=== PATIENT | female | born 1985 | race Caucasian/White ===

== ENCOUNTER 2016-04-24 11:10 | Emergency (ER) | payer MEDICAID ==
[~2016-04-24] VITALS: Ht 149.9 cm; Wt 52.2 kg
[~2016-04-24 11:10] MED LIST: ADVIL200 MG PO; AEROCHAMBER1 DEV IH; ALBUTEROL-200 PUFFS/ IH; ANTIBIOTIC OR; AZITHROMYCIN250 M1 PO; BACTRIM DS 8001 TA1 PO; BACTRIM DS 8001 TAB PO; DILAUDID4 MG FT; ELIMITE 5%60 GM/TUB1 TP; FERROUS SULFAT325 M2 PO; FLEXERIL10 MG PO; FLEXERIL5 MG PO; IBUPROFEN 600M600 MG PO; KEFLEX 500MG.500 MG PO; MEDROL 4MG. DOSE4 MG PO; MOTRIN400 MG PO; NOMEDS; PHENERGAN 25MG.25 M1 PO; PREDNISONE 20MG20 MG PO; PREDNISONE50 MG PO; PRENATAL1 TA1 PO; PROVENTIL0.09 MG/AC IH; SEPTRA DS 800 M1 TAB PO; ZITHROMAX 250M250 MG PO; ZITHROMAX Z-PA250 M1 PO
[2016-04-24 11:37] LABS: HEMOGLOBIN 13.5 g/dL (12.2-16.2); LYMPH # 1.7 K/mm3 (0.7-4.5)
[2016-04-24 11:59] LABS: BUN 5 mg/dL (7-18)
[2016-04-24 12:04] LABS: GFR (ESTIMATED) 100 ML/MIN (59-)
--- NOTE | 2016-04-24 13:30 | Emergency Room Report ---
History of Present Illness Time Seen by [id number] Presenting Problem in Triage Pt arrived:Walked Presenting Problem:C/O LEFT SIDED CHEST PAIN THAT STARTED LAST NIGHT. REPORTS SOA WITH IT. PT STATES IT HURTS TO MOVE. 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 N Clinical Suspician of Infection? N Mental Status: 1 - Regular (Normal Baseline) Sepsis Risk:Low Sepsis Risk Have you (or family members/close friends) recently traveled outside the [place]? N If Yes, where/when: Have you had exposure to infectious disease within the past month? N TB? Other? Specify: Source patient, RN notes reviewed, family, old records Exam Limitations no limitations Comment progressive sob and cough over the last few days w/o rash or hemoptysis Cardiac Chest Pain Chest pain indicative of cardiac No Timing/Duration this evening Severity moderate ALLERGIES Coded Allergies: Penicillins (11/18/15) codeine (11/18/15) Home Medications Active Scripts Albuterol (Albuterol-Hfa Inhaler) 1 PUFF IH QIDP PRN dyspnea #1 INH Ref 6 Prov: 11/18/15 History Medical History General CAD? No Angina: No [place]: No Hypertension? No Hyperlipidemia? No CHF? No DVT? No PE? No COPD? No Asthma? Yes Anemia? No GERD? No Gastric ulcers? No GI Bleed? No Hernia? No Thyroid Problems? No Hypothyroidism? No CVA? No Seizures? No Diabetes? No Renal Insuffiency? No End Stage Renal Disease? No UTI? No Stones? No BPH? No GB Disease: No Nephritic Syndrome? No Asplenia? No Hepatitis? No Sickle Cell Disease? No Arthritis? No Migraines? No Cataracts? No Glaucoma? No MRSA? No HIV? No TB? No Anxiety? No Depression? No Cancer? No More? 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 Respiratory see HPI, cough, denies shortness of breath, wheezing Cardiovascular denies chest pain, denies palpitations, denies syncope Gastrointestinal denies abdominal pain, denies diarrhea, denies vomiting Genitourinary denies: dysuria, frequency, hesitancy, hematuria. Musculoskeletal denies back pain, denies joint pain, denies joint swelling, denies neck pain Skin denies rash Psychiatric/Neurological denies headache, denies seizure Physical Exam Vital Signs Vital Signs Date Time Temp Pulse Resp B/P Pulse O2 O2 Flow FiO2 Ox Delivery Rate 04/24 1455 98.1 58 20 128/63 98 04/24 1341 20 04/24 1323 98.4 86 20 130/75 96 04/24 1229 98.1 86 20 125/68 98 04/24 1111 98.1 92 16 150/84 100 - WBC >12,000 or <4,000 or 10% bands? 2 or more SIRS Criteria Met? B/P:128/63 MAP:106 Creatinine >2.0? UA output<0.5ml/kg/hr for 2 hrs? Platelet count >100,000? Lactate >2.0mmol/1? INR >1.2 or PTT > than 60 sec? Evidence of Organ Dysfunction? Provider documented clinical suspician of infection? N Sepsis Criteria Count: 1 Sepsis Risk: Low Sepsis Risk General Appearance no apparent distress Eye Exam - bilateral eye PERRL, bilateral eye EOMI Ear, Nose, Throat normal ENT inspection Neck supple Respiratory Status No: respiratory distress. Lung Sounds bilateral: rhonchi, wheezing. 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 No Results/Orders Laboratory Tests 04/24/16 1345: Influenza Type A Ag NOT DETECTED, Influenza Type B Ag NOT DETECTED 04/24/16 1127: Lactic Acid 0.9 04/24/16 1127: Sodium 136, Potassium 3.6, Chloride 101, Carbon Dioxide 26, BUN 5 L, Creatinine 0.7, Estimated Creat Clear 99, Estimated GFR (MDRD) 100, Glucose 96, Calcium 9.0 , Total Bilirubin 0.4, AST 10 L, ALT 18, Alkaline Phosphatase 107, Creatine Kinase 115, CK-MB (CK-2) Rel Index 0.5, CK and CKMB Interp 0.6, Troponin I < 0.02, Total Protein 7.9, Albumin 3.6, Globulin 4.3 H, Albumin/Globulin Ratio 0.8 L, WBC 11.2 H, RBC 4.82, Hgb 13.5, Hct 41.2, MCV 85.5, RDW 15.0, Plt Count 218, MPV 5.7 L, Gran % 78.5, Gran # 8.8 H, Lymphocytes % 15.0, Monocytes % 5.8 , Eosinophils % 0.5, Basophils % 0.2, Lymphocytes # 1.7, Monocytes # 0.6, Eosinophils # 0.1, Basophils # 0.0, PUBS MCHC 32.8, MCH 28.1 Current Medication Orders Sig/Maxime Start time Last Medication Dose Route Stop Time Status Admin Ceftriaxone Sodium 1 GM ONCE ONE 04/24 1345 DCr 04/24 Sodium Chloride 50 ML IV 04/24 1414 1343 Ceftriaxone Sodium 0 .STK-MED ONE 04/24 1334 DCr IV Sodium Chloride 1,000 ML .STK-MED ONE 04/24 1334 DC IV Ceftriaxone Sodium 0 .STK-MED ONE 04/24 1333 DCr .ROUTE Sodium Chloride 50 ML .STK-MED ONE 04/24 1333 DC IV Ketorolac 0 .STK-MED ONE 04/24 1332 DC Tromethamine .ROUTE Ketorolac 30 MG ONCE ONE 04/24 1330 DC 04/24 Tromethamine IV 04/24 1331 1341 Methylprednisolone 125 MG ONCE ONE 04/24 1330 DC 04/24 Sodium Succinate IV 04/24 1331 1341 Sodium Chloride 1,000 ML .Q1H1M 04/24 1330 DC 04/24 IV 04/24 1430 1343 Sodium Chloride 10 ML PRN PRN 04/24 1330 AC IV 04/25 1330 Aspirin 324 MG ONCE ONE 04/24 1130 DC 04/24 PO 04/24 1131 1123 Sodium Chloride 10 ML PRN PRN 04/24 1130 AC IV 04/25 1117 Aspirin 0 .STK-MED ONE 04/24 1120 DC .ROUTE Orders Procedure Date/time Status INFLUENZA A&B ANTIGENS 04/24 1322 Complete ELECTROCARDIOGRAM REQUEST 04/24 1118 Active IV SALINE LOCK 04/24 1118 Active CULTURE, BLOOD 04/24 1118 Active LACTIC ACID 04/24 1118 Complete CBC WITH AUTO DIFF 04/24 1118 Complete CARDIAC ENZYMES 04/24 1118 Complete CHEM 12 PROFILE 04/24 1118 Complete 12 LEAD EKG-ERIKA (INITIAL) 04/24 UNK Active 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 ST/Twave chgs XRAY/CT/US XRAY/CT/US XRAY chest XR interpretation by reviewed by me Xray Results abnormal (cap) Departure Departure Time of Disposition 1517 Disposition DC Home or Self Care(routine) Clinical Impression Primary Impression: CAP (community acquired pneumonia) Condition STABLE Referrals Arpit Dias MD (PCP/Family) Patient Instructions DI for Pleurisy Additional Instructions use meds and stop tob and see pcp for follow up next week Discharge Counseling Counseled pt/family regarding diagnosis, test results, medications/RX, follow up needs, tobacco counseling,> 3min Prescriptions Current Visit Scripts BENZONATATE (Benzonatate) 100 MG PO TID #15 CAP Prednisone (Prednisone 20MG) 20 MG PO BID #10 TAB Azithromycin (Zithromycin (Z-CARI) 250MG Tab) 250 MG PO DAILY #6 TAB TAKE TWO (2) TABLETS ON DAY 1, THEN ONE (1) TABLET DAY #2 THRU #5 ED Critical Care Critical Care No at 1521
--- NOTE | 2016-04-24 14:26 | RADIOLOGY REPORT PS360 ---
CHEST(2 VIEWS-NOT PORTABLE) COMPARISON: PA and lateral chest 11/18/2015 HISTORY: Shortness of breath, chest pain TECHNIQUE: PA and lateral chest FINDINGS: There is ill-defined opacity with faint air bronchograms partially silhouetting the left heart border consistent with a pneumonic infiltrate in the lingula. The left upper lung field and right lung field are clear. Cardiac size is normal and the vascularity is normal. There may be some minimal post inflammatory scarring or atelectasis at the right base. There is no pleural fluid. IMPRESSION: Lingular pneumonia and suggest follow-up films to assess clearing following treatment
[2016-04-24] MEDS ORDERED: PREDNISONE 20MG20 MG PO (15:20)
[2016-04-24] MEDS ORDERED: ZITHROMAX Z PA250 MG PO (15:20)
[2016-04-24] MEDS ORDERED: TESSALON PERLE100 MG PO (15:20)
[2016-04-24 15:31] VITALS: BP 122/64
== END 2016-04-24 15:31 | disposition home or self-care (01) ==
LOC: ER 11:10
PROVIDERS: Emergency Medicine
DX: J18.9 Pneumonia, unspecified organism (principal); Z72.0 Tobacco use

== ENCOUNTER 2016-09-29 00:31 | Emergency (ER) | payer MEDICAID ==
[~2016-09-29] VITALS: Ht 149.9 cm; Wt 49.9 kg
[~2016-09-29 00:31] MED LIST changes: +BROMFED DM COU118 ML PO; +FLONASE 50 MCG16 GM; +PROVENTIL0.09 MG/A1 IH; +TESSALON PERLE100 MG PO; +ZITHROMAX Z PA250 MG PO
--- NOTE | 2016-09-29 01:07 | Emergency Room Report ---
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 N Clinical Suspician of Infection? N Mental Status: 1 - Regular (Normal Baseline) Sepsis Risk:Possible Sepsis Risk Have you (or family members/close friends) recently traveled outside the [place]? N If Yes, where/when: Have you had exposure to infectious disease within the past month? TB? Other? Specify: Source patient, RN notes reviewed, police, old records Exam Limitations no limitations Comment wf brought to ed for medical clearance - she hasonly c/o of ear pain after sticking cerumen spoon too far in but no fever or bleeding Cardiac Chest Pain Chest pain indicative of cardiac No Timing/Duration this evening Severity moderate ALLERGIES Coded Allergies: Penicillins (11/18/15) codeine (11/18/15) Home Medications Active Scripts Azithromycin (Zithromycin (Z-LOC) 250MG Tab) 250 MG PO DAILY #6 TAB Prov: 07/15/16 D-METHORPHAN HB/P-EPD HCL/BPM (Bromfed Dm Cough Syrup) 10 ML PO Q4HP PRN cough #120 SYR Prov: 07/15/16 Fluticasone Propionate (Flonase 50 Mcg Nasal [place]) 2 SPRAY NA DAILY #1 BOT Prov: 07/15/16 Methylprednisolone (Medrol Dose Loc) 4 MG PO UD #1 LOC Prov: 07/15/16 ALBUTEROL (Proventil Hfa Inhaler) 1-2 PUFF IH Q4-6H PRN #1 CAN Prov: 07/15/16 History Medical History General CAD? No Angina: No [place]: No Hypertension? No Hyperlipidemia? No CHF? No DVT? No PE? No COPD? No Asthma? Yes Anemia? No GERD? No Gastric ulcers? No GI Bleed? No Hernia? No Thyroid Problems? No Hypothyroidism? No CVA? No Seizures? No Diabetes? No Renal Insuffiency? No End Stage Renal Disease? No UTI? No Stones? No BPH? No GB Disease: No Nephritic Syndrome? No Asplenia? No Hepatitis? No Sickle Cell Disease? No Arthritis? No Migraines? No Cataracts? No Glaucoma? No MRSA? No HIV? No TB? No Anxiety? No Depression? No Cancer? No More? 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 denies: ear discharge, epistaxis, throat pain. Respiratory denies cough, denies shortness of breath Cardiovascular denies syncope Gastrointestinal denies vomiting Genitourinary denies: frequency. Musculoskeletal denies joint swelling Skin denies rash Psychiatric/Neurological denies seizure Physical Exam Vital Signs Vital Signs Date Time Temp Pulse Resp B/P Pulse O2 O2 Flow FiO2 Ox Delivery Rate 09/29 0048 122 22 150/123 96 - WBC >12,000 or <4,000 or 10% bands? 2 or more SIRS Criteria Met? B/P:150/123 MAP:132 Creatinine >2.0? UA output<0.5ml/kg/hr for 2 hrs? Platelet count >100,000? Lactate >2.0mmol/1? INR >1.2 or PTT > than 60 sec? Evidence of Organ Dysfunction? Provider documented clinical suspician of infection? N Sepsis Criteria Count: 2 Sepsis Risk: Possible Sepsis Risk General Appearance no apparent distress Eye Exam - bilateral eye PERRL, bilateral eye EOMI Ear, Nose, Throat unable to see tm but no blood in canals Neck supple Respiratory Status No: respiratory distress. Lung Sounds bilateral: lungs clear. 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 No Departure Departure Time of Disposition 0101 Disposition DC Home or Self Care(routine) Clinical Impression Primary Impression: Medical clearance for incarceration Secondary Impressions: Ear pain Qualifiers: Laterality: bilateral Qualified Code: H92.03 - Otalgia, bilateral Condition STABLE Referrals Clarke CORDOVA,Lai Eckert Patient Instructions DI for Ear Pain-Adult Additional Instructions see pcp for follow up Discharge Counseling Counseled pt/family regarding diagnosis, test results, medications/RX, follow up needs ED Critical Care Critical Care No at 0107
--- NOTE | 2016-09-29 01:07 | Emergency Room Report ---
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 N Clinical Suspician of Infection? N Mental Status: 1 - Regular (Normal Baseline) Sepsis Risk:Possible Sepsis Risk Have you (or family members/close friends) recently traveled outside the [place]? N If Yes, where/when: Have you had exposure to infectious disease within the past month? TB? Other? Specify: Source patient, RN notes reviewed, police, old records Exam Limitations no limitations Comment wf brought to ed for medical clearance - she hasonly c/o of ear pain after sticking cerumen spoon too far in but no fever or bleeding Cardiac Chest Pain Chest pain indicative of cardiac No Timing/Duration this evening Severity moderate ALLERGIES Coded Allergies: Penicillins (11/18/15) codeine (11/18/15) Home Medications Active Scripts Azithromycin (Zithromycin (Z-LOC) 250MG Tab) 250 MG PO DAILY #6 TAB Prov: 07/15/16 D-METHORPHAN HB/P-EPD HCL/BPM (Bromfed Dm Cough Syrup) 10 ML PO Q4HP PRN cough #120 SYR Prov: 07/15/16 Fluticasone Propionate (Flonase 50 Mcg Nasal [place]) 2 SPRAY NA DAILY #1 BOT Prov: 07/15/16 Methylprednisolone (Medrol Dose Loc) 4 MG PO UD #1 LOC Prov: 07/15/16 ALBUTEROL (Proventil Hfa Inhaler) 1-2 PUFF IH Q4-6H PRN #1 CAN Prov: 07/15/16 History Medical History General CAD? No Angina: No [place]: No Hypertension? No Hyperlipidemia? No CHF? No DVT? No PE? No COPD? No Asthma? Yes Anemia? No GERD? No Gastric ulcers? No GI Bleed? No Hernia? No Thyroid Problems? No Hypothyroidism? No CVA? No Seizures? No Diabetes? No Renal Insuffiency? No End Stage Renal Disease? No UTI? No Stones? No BPH? No GB Disease: No Nephritic Syndrome? No Asplenia? No Hepatitis? No Sickle Cell Disease? No Arthritis? No Migraines? No Cataracts? No Glaucoma? No MRSA? No HIV? No TB? No Anxiety? No Depression? No Cancer? No More? 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 denies: ear discharge, epistaxis, throat pain. Respiratory denies cough, denies shortness of breath Cardiovascular denies syncope Gastrointestinal denies vomiting Genitourinary denies: frequency. Musculoskeletal denies joint swelling Skin denies rash Psychiatric/Neurological denies seizure Physical Exam Vital Signs Vital Signs Date Time Temp Pulse Resp B/P Pulse O2 O2 Flow FiO2 Ox Delivery Rate 09/29 0048 122 22 150/123 96 - WBC >12,000 or <4,000 or 10% bands? 2 or more SIRS Criteria Met? B/P:150/123 MAP:132 Creatinine >2.0? UA output<0.5ml/kg/hr for 2 hrs? Platelet count >100,000? Lactate >2.0mmol/1? INR >1.2 or PTT > than 60 sec? Evidence of Organ Dysfunction? Provider documented clinical suspician of infection? N Sepsis Criteria Count: 2 Sepsis Risk: Possible Sepsis Risk General Appearance no apparent distress Eye Exam - bilateral eye PERRL, bilateral eye EOMI Ear, Nose, Throat unable to see tm but no blood in canals Neck supple Respiratory Status No: respiratory distress. Lung Sounds bilateral: lungs clear. 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 No Departure Departure Time of Disposition 0101 Disposition DC Home or Self Care(routine) Clinical Impression Primary Impression: Medical clearance for incarceration Secondary Impressions: Ear pain Qualifiers: Laterality: bilateral Qualified Code: H92.03 - Otalgia, bilateral Condition STABLE Referrals Clarke CORDOVA,Lai Eckert Patient Instructions DI for Ear Pain-Adult Additional Instructions see pcp for follow up Discharge Counseling Counseled pt/family regarding diagnosis, test results, medications/RX, follow up needs ED Critical Care Critical Care No at 0107
[2016-09-29 01:11] VITALS: BP 150/123
--- OUTSIDE RECORDS SUMMARY | 2016-09-29 01:25 | External Medical Summary Rpt ---
Author Author CLARENARESH [employer], [employer] Organization [employer] Address Unknown Phone Unavailable Results COMMENT INFO Observa Value Referen Units Interpr Notes Date tion ce etation Range COLLECT NA No No No No Oct 20 OR informa informa informa informa 2011 tion in tion in tion in tion in 1:50 PM source source source source data data data data ETHNICI WHITE No No No No Oct 20 TY informa informa informa informa 2011 tion in tion in tion in tion in 1:50 PM source source source source data data data data PURPOSE PRENATA No No No No Oct 20 OF L informa informa informa informa 2011 EXAM tion in tion in tion in tion in 1:50 PM source source source source data data data data SPECIME BLOOD No No No No Oct 20 N informa informa informa informa 2011 SOURCE tion in tion in tion in tion in 1:50 PM source source source source data data data data CHART NA No No No No Oct 20 NUMBER informa informa informa informa 2011 tion in tion in tion in tion in 1:50 PM source source source source data data data data COMMENT TEST No No No \.br\Oct 20 INFO CODE informa informa informa is 2011 HBSB tion in tion in tion in report 1:50 PM CANCELL source source source contain ED: PNP data data data s patient ORDERED informa tion that must be protect ed in accorda nce with the Health Insuran ce Portabi lity and Account ability Act. PROFILE Observa Value Referen Units Interpr Notes Date tion ce etation Range COLLECT NA No No No No Oct 20 OR informa informa informa informa 2011 tion in tion in tion in tion in 1:50 PM source source source source data data data data ETHNICI WHITE No No No No Oct 20 TY informa informa informa informa 2011 tion in tion in tion in tion in 1:50 PM source source source source data data data data PURPOSE PT IS A No No No No Oct 20 OF informa informa informa informa 2010 EXAM PRENATA tion in tion in tion in tion in 1:50 PM L PT source source source source AND THE data data data data HBSAG IS THE TEST NEEDED. SPECIME BLOOD No No No No Oct 20 N informa informa informa informa 2011 SOURCE tion in tion in tion in tion in 1:50 PM source source source source data data data data CHART NA No No No No Oct 20 NUMBER informa informa informa informa 2011 tion in tion in tion in tion in 1:50 PM source source source source data data data data Reagin NON-RAN No No No METHOD Oct 20 [address]IVE informa informa informa OF 2010 [Presen tion in tion in tion in ANALYSI 1:50 PM ce] in source source source S: Unspeci data data data VDRLNOR fied MAL specime RANGE: n by NON VDRL REACTIV E Hepatit NON-RAN No No No METHOD Oct 20 is B CTIVE informa informa informa OF 2010 virus tion in tion in tion in ANALYSI 1:50 PM surface source source source S: Ag data data data EIANORM [Presen AL ce] in RANGE: Serum NON by REACTIV Immunoa E ssay Rubella 1.92 No No No METHOD Oct 20 virus INDEX informa informa informa OF 2010 IgG Ab tion in tion in tion in ANALYSI 1:50 PM [Units/ source source source S: EIA volume] data data data in Serum by Immunoa ssay RUB CONSIST >=1.1 No No \.br\Oct 20 INTERPR ENT INDEX informa informa is 2011 ETATION WITH tion in tion in report 1:50 PM IMMUNIT source source contain Y- data data s IMMUNIT patient Y informa tion that must be protect ed in accorda nce with the Health Insuran ce Portabi lity and Account ability Act. PROFILE Observa Value Referen Units Interpr Notes Date tion ce etation Range COLLECT NA No No No No Oct 20 OR informa informa informa informa 2010 tion in tion in tion in tion in 1:50 PM source source source source data data data data ETHNICI WHITE No No No No Oct 20 TY informa informa informa informa 2011 tion in tion in tion in tion in 1:50 PM source source source source data data data data PURPOSE PT IS A No No No No Oct 20 OF informa informa informa informa 2011 EXAM PRENATA tion in tion in tion in tion in 1:50 PM L PT source source source source AND THE data data data data HBSAG IS THE TEST NEEDED. SPECIME BLOOD No No No No Oct 20 N informa informa informa informa 2011 SOURCE tion in tion in tion in tion in 1:50 PM source source source source data data data data CHART NA No No No No Oct 20 NUMBER informa informa informa informa 2011 tion in tion in tion in tion in 1:50 PM source source source source data data data data Reagin NON-RAN No No No METHOD Oct [address] informa informa informa OF 2010 [Presen tion in tion in tion in ANALYSI 1:50 PM ce] in source source source S: Unspeci data data data VDRLNOR fied MAL specime RANGE: n by NON VDRL REACTIV E Hepatit NON-RAN No No No METHOD Oct 20 is B CTIVE informa informa informa OF 2011 virus tion in tion in tion in ANALYSI 1:50 PM surface source source source S: Ag data data data EIANORM [Presen AL ce] in RANGE: Serum NON by REACTIV Immunoa E ssay Rubella 1.92 No No No METHOD Oct 20 virus INDEX informa informa informa OF 2010 IgG Ab tion in tion in tion in ANALYSI 1:50 PM [Units/ source source source S: EIA volume] data data data in Serum by Immunoa ssay RUB CONSIST >=1.1 No No \.br\Oct 20 INTERPR ENT INDEX informa informa is 2010 ETATION WITH tion in tion in report 1:50 PM IMMUNIT source source contain Y- data data s IMMUNIT patient Y informa tion that must be protect ed in accorda nce with the Health Insuran ce Portabi lity and Account ability Act. CHLAMYDIA AND GONORRHEA TESTING Observa Value Referen Units Interpr Notes Date tion ce etation Range COLLECT NA No No No No Aug 17 OR informa informa informa informa 2011 tion in tion in tion in tion in 11:56 source source source source AM data data data data ETHNICI WHITE, No No No No Oct 20 TY NON-HIS informa informa informa informa 2011 PANIC tion in tion in tion in tion in 11:56 source source source source AM data data data data KIT 1-31-12 No No No No Oct 20 EXPIRAT informa informa informa informa 2011 ION tion in tion in tion in tion in 11:56 DATE source source source source AM data data data data SYMPTOM NO No No No No Oct 20 S informa informa informa informa 2011 tion in tion in tion in tion in 11:56 source source source source AM data data data data REASON PRENATA No No No No Oct 20 FOR L VISIT informa informa informa informa 2011 REQUEST tion in tion in tion in tion in 11:56 source source source source AM data data data data SPECIME FEMALE No No No No Oct 20 N ENDOCER informa informa informa informa 2011 SOURCE VICAL tion in tion in tion in tion in 11:56 source source source source AM data data data data PREGNAN YES No No No No Oct 20 T informa informa informa informa 2011 tion in tion in tion in tion in 11:56 source source source source AM data data data data CHART NA No No No No Oct 20 NUMBER informa informa informa informa 2011 tion in tion in tion in tion in 11:56 source source source source AM data data data data Chlamyd NEGATIV No No No NEGATIV Oct 20 ia E informa informa informa E 2011 trachom tion in tion in tion in RESULT= 11:56 atis source source source WITHIN AM rRNA data data data NORMAL [Presen ce] in LIMITSP Unspeci OSITIVE fied specime RESULT= n by Probe & ABNORMA target LEQUIVO AIDAN amplifi RESULT= cation method INDETER MINATEU NSATISF ACTORY RESULT= INVALID Neisser NEGATIV No No No NEGATIV Oct 20 ia E informa informa informa E 2011 gonorrh tion in tion in tion in RESULT= 11:56 oeae source source source WITHIN AM rRNA data data data NORMAL [Presen ce] in LIMITSP Unspeci OSITIVE fied specime RESULT= n by Probe & ABNORMA target LEQUIVO AIDAN amplifi RESULT= cation method INDETER MINATEU NSATISF ACTORY RESULT= INVALID 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
--- OUTSIDE RECORDS SUMMARY | 2016-09-29 01:25 | External Medical Summary Rpt ---
Demographics Preferred Language Slovenian Marital Status Unknown Cheondoism Affiliation Unknown Race Unknown Ethnic Group Unknown Author Author , ELVIRA LIZARRAGA Address Unknown Phone Immunization Unable to retrieve immunization data due to connection failure with Immunization Registry. Please try again later.
--- OUTSIDE RECORDS SUMMARY | 2016-09-29 01:25 | External Medical Summary Rpt ---
Demographics Preferred Language Kazakh Marital Status Unknown Gnosticist Affiliation Unknown Race Unknown Ethnic Group Unknown Author Author , ELVIRA LIZARRAGA Address Unknown Phone Immunization Unable to retrieve immunization data due to connection failure with Immunization Registry. Please try again later.
[2016-10-07] MEDS ORDERED: FLOXIN 0.3%5 ML/BOT OT (15:37)
[2016-10-07] MEDS ORDERED: NORCO 325 MG-51 TAB PO (16:33)
[2016-10-07] MEDS ORDERED: BACTRIM DS 8001 TA1 PO (16:33)
== END 2016-09-29 01:12 | disposition home or self-care (01) ==
LOC: ER 00:31
DX: Z02.89 Encounter for other administrative examinations (principal); H92.03 Otalgia, bilateral; Z72.0 Tobacco use

== ENCOUNTER 2016-10-04 12:47 | Emergency (ER) | payer MEDICAID ==
[~2016-10-04] VITALS: Ht 149.9 cm; Wt 52.2 kg
--- OUTSIDE RECORDS SUMMARY | 2016-10-04 13:16 | External Medical Summary Rpt ---
Demographics Preferred Language Slovenian Marital Status Unknown Shinto Affiliation Unknown Race Unknown Ethnic Group Unknown Author Author , ELVIRA LIZARRAGA Address Unknown Phone Immunization Unable to retrieve immunization data due to connection failure with Immunization Registry. Please try again later.
--- OUTSIDE RECORDS SUMMARY | 2016-10-04 13:16 | External Medical Summary Rpt ---
Demographics Preferred Language Maltese Marital Status Unknown Mormon Affiliation Unknown Race Unknown Ethnic Group Unknown Author Author , ELVIRA LIZARRAGA Address Unknown Phone Immunization Unable to retrieve immunization data due to connection failure with Immunization Registry. Please try again later.
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
[2016-10-04] MEDS ORDERED: FLOXIN 0.3%5 ML/BOT OT (13:40)
[2016-10-04 13:46] VITALS: BP 137/76
[2016-10-07] MEDS ORDERED: FLOXIN 0.3%5 ML/BOT OT (15:37)
[2016-10-07] MEDS ORDERED: NORCO 325 MG-51 TAB PO (16:33)
[2016-10-07] MEDS ORDERED: BACTRIM DS 8001 TA1 PO (16:33)
== END 2016-10-04 13:47 | disposition home or self-care (01) ==
LOC: UTC 12:47
DX: H60.93 Unspecified otitis externa, bilateral (principal); Z72.0 Tobacco use

== ENCOUNTER 2016-12-08 21:43 | Emergency (ER) | payer MEDICAID ==
[~2016-12-08] VITALS: Ht 149.9 cm; Wt 52.2 kg
[~2016-12-08 21:43] MED LIST changes: +FLOXIN 0.3%5 ML/BOT OT; +NORCO 325 MG-51 TAB PO
[2016-12-08 22:03] VITALS: BP 142/70
--- NOTE | 2016-12-08 22:07 | Emergency Room Report ---
History of Present Illness Time Seen by [id number] Presenting Problem in Triage Pt arrived:Walked Presenting Problem:MEDICAL CLEARANCE Onset of symptoms date/time:/ or onset unknown for:MEDICAL HX UNKNOWN Treatment Prior to Arrival: [facility]APEMAN Provided by: Sepsis Risk Assessment: Temp: 97.9 B/P: 142/70 MAP: 94 Pulse: 85 Resp: 18 Recent fever? N Clinical Suspician of Infection? N Mental Status: 1 - Regular (Normal Baseline) Sepsis Risk:Low Sepsis Risk Have you (or family members/close friends) recently traveled outside the [place]? N If Yes, where/when: Have you had exposure to infectious disease within the past month? N TB? Other? Specify: Source patient, RN notes reviewed, old records Exam Limitations no limitations Comment pt w/o c/o and has been using drugs but has no c/o Cardiac Chest Pain Chest pain indicative of cardiac No Timing/Duration this evening Severity moderate ALLERGIES Coded Allergies: Penicillins (11/18/15) codeine (11/18/15) Home Medications Active Scripts SULFAMETHOXAZOLE W/TRIMETHOPRI (Bactrim Ds Tab) 1 TAB PO BID #20 TAB Prov: 10/07/16 HYDROCODONE/ACETAMINOPHEN ([place] 5-325 Tablet) 1 TAB PO Q6HP PRN pain #6 TAB Prov: 10/07/16 Reported Medications OFLOXACIN (Floxin 0.3% Otic Solution 5ML) 10 DROP OT BID History Medical History General CAD? No Angina: No [place]: No Hypertension? No Hyperlipidemia? No CHF? No DVT? No PE? No COPD? No Asthma? Yes Anemia? No GERD? No Gastric ulcers? No GI Bleed? No Hernia? No Thyroid Problems? No Hypothyroidism? No CVA? No Seizures? No Diabetes? Yes Insulin Dependent: No Insulin Pump: No Home FSBS? Yes Renal Insuffiency? No End Stage Renal Disease? No UTI? No Stones? No BPH? No GB Disease: No Nephritic Syndrome? No Asplenia? No Hepatitis? No Sickle Cell Disease? No Arthritis? No Migraines? No Cataracts? No Glaucoma? No MRSA? No HIV? No TB? No Anxiety? No Depression? No Cancer? No More? 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 Respiratory denies cough, denies shortness of breath, denies wheezing Cardiovascular denies chest pain, denies syncope Gastrointestinal denies abdominal pain, denies diarrhea, denies vomiting Genitourinary denies: dysuria, frequency, hesitancy, hematuria. Musculoskeletal denies back pain, denies joint pain, denies joint swelling, denies neck pain Skin denies rash Psychiatric/Neurological denies headache, denies seizure Physical Exam Vital Signs Vital Signs Date Time Temp Pulse Resp B/P Pulse O2 O2 Flow FiO2 Ox Delivery Rate 12/08 2147 97.9 85 18 142/70 98 - WBC >12,000 or <4,000 or 10% bands? 2 or more SIRS Criteria Met? B/P:142/70 MAP:94 Creatinine >2.0? UA output<0.5ml/kg/hr for 2 hrs? Platelet count >100,000? Lactate >2.0mmol/1? INR >1.2 or PTT > than 60 sec? Evidence of Organ Dysfunction? Provider documented clinical suspician of infection? N Sepsis Criteria Count: 0 Sepsis Risk: Low Sepsis Risk General Appearance no apparent distress Eye Exam - bilateral eye PERRL, bilateral eye EOMI Ear, Nose, Throat normal ENT inspection Neck supple Respiratory Status No: respiratory distress. Lung Sounds bilateral: lungs clear. 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 No Departure Departure Time of Disposition 2202 Disposition DC Home or Self Care(routine) Clinical Impression Primary Impression: Medical clearance for incarceration Condition STABLE Patient Instructions DI for Drug Abuse and Drug Addiction Additional Instructions see pcp for follow up Discharge Counseling Counseled pt/family regarding diagnosis, follow up needs ED Critical Care Critical Care No at [id number]
--- NOTE | 2016-12-08 22:07 | Emergency Room Report ---
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 N Clinical Suspician of Infection? N Mental Status: 1 - Regular (Normal Baseline) Sepsis Risk:Low Sepsis Risk Have you (or family members/close friends) recently traveled outside the [place]? N If Yes, where/when: Have you had exposure to infectious disease within the past month? N TB? Other? Specify: Source patient, RN notes reviewed, old records Exam Limitations no limitations Comment pt w/o c/o and has been using drugs but has no c/o Cardiac Chest Pain Chest pain indicative of cardiac No Timing/Duration this evening Severity moderate ALLERGIES Coded Allergies: Penicillins (11/18/15) codeine (11/18/15) Home Medications Active Scripts SULFAMETHOXAZOLE W/TRIMETHOPRI (Bactrim Ds Tab) 1 TAB PO BID #20 TAB Prov: 10/07/16 HYDROCODONE/ACETAMINOPHEN ([place] 5-325 Tablet) 1 TAB PO Q6HP PRN pain #6 TAB Prov: 10/07/16 Reported Medications OFLOXACIN (Floxin 0.3% Otic Solution 5ML) 10 DROP OT BID History Medical History General CAD? No Angina: No ME: No Hypertension? No Hyperlipidemia? No CHF? No DVT? No PE? No COPD? No Asthma? Yes Anemia? No GERD? No Gastric ulcers? No GI Bleed? No Hernia? No Thyroid Problems? No Hypothyroidism? No CVA? No Seizures? No Diabetes? Yes Insulin Dependent: No Insulin Pump: No Home FSBS? Yes Renal Insuffiency? No End Stage Renal Disease? No UTI? No Stones? No BPH? No GB Disease: No Nephritic Syndrome? No Asplenia? No Hepatitis? No Sickle Cell Disease? No Arthritis? No Migraines? No Cataracts? No Glaucoma? No MRSA? No HIV? No TB? No Anxiety? No Depression? No Cancer? No More? 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 Respiratory denies cough, denies shortness of breath, denies wheezing Cardiovascular denies chest pain, denies syncope Gastrointestinal denies abdominal pain, denies diarrhea, denies vomiting Genitourinary denies: dysuria, frequency, hesitancy, hematuria. Musculoskeletal denies back pain, denies joint pain, denies joint swelling, denies neck pain Skin denies rash Psychiatric/Neurological denies headache, denies seizure Physical Exam Vital Signs Vital Signs Date Time Temp Pulse Resp B/P Pulse O2 O2 Flow FiO2 Ox Delivery Rate 12/08 2147 97.9 85 18 142/70 98 - WBC >12,000 or <4,000 or 10% bands? 2 or more SIRS Criteria Met? B/P:142/70 MAP:94 Creatinine >2.0? UA output<0.5ml/kg/hr for 2 hrs? Platelet count >100,000? Lactate >2.0mmol/1? INR >1.2 or PTT > than 60 sec? Evidence of Organ Dysfunction? Provider documented clinical suspician of infection? N Sepsis Criteria Count: 0 Sepsis Risk: Low Sepsis Risk General Appearance no apparent distress Eye Exam - bilateral eye PERRL, bilateral eye EOMI Ear, Nose, Throat normal ENT inspection Neck supple Respiratory Status No: respiratory distress. Lung Sounds bilateral: lungs clear. 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 No Departure Departure Time of Disposition 2202 Disposition DC Home or Self Care(routine) Clinical Impression Primary Impression: Medical clearance for incarceration Condition STABLE Patient Instructions DI for Drug Abuse and Drug Addiction Additional Instructions see pcp for follow up Discharge Counseling Counseled pt/family regarding diagnosis, follow up needs ED Critical Care Critical Care No at 1175
--- OUTSIDE RECORDS SUMMARY | 2016-12-16 00:45 | External Medical Summary Rpt | CCD ---
Author Author , ZIA LIZARRAGA Address Unknown Phone [email or web address] Immunization Name Date Rout CVX Reac Dose Comm Prov Is Faci e tion ent ider Refu lity Give sed n MMR 08-2 3 999 Hist H149 No H149 0-19 oric 99 al Info rmat ion - Sour ce Unsp ecif ied Td 08-2 9 999 Hist H149 No H149 (sha 0-19 oric lt), 99 al Info adso rmat rbed ion - Sour ce Unsp ecif ied
--- OUTSIDE RECORDS SUMMARY | 2016-12-16 00:45 | External Medical Summary Rpt | CCD ---
Author Author , ZIA LIZARRAGA Address Unknown Phone [email or web address] Immunization Name Date Rout CVX Reac Dose [...]
== END 2016-12-08 22:10 | disposition home or self-care (01) ==
LOC: ER 21:43
DX: Z02.89 Encounter for other administrative examinations (principal); Z88.0 Allergy status to penicillin; Z88.6 Allergy status to analgesic agent; J45.909 Unspecified asthma, uncomplicated; E11.9 Type 2 diabetes mellitus without complications; F17.210 Nicotine dependence, cigarettes, uncomplicated

== ENCOUNTER → 2016-12-19 | Outpatient (CLI) | payer MEDICAID ==
[2016-12-19 18:17] LABS: AMPHETAMINES/METAMPHETAMINES NEGATIVE ng/mL (<1000)
== END ==
LOC: LAB 13:32
PROVIDERS: Emergency Medicine
DX: Z79.899 Other long term (current) drug therapy (principal)

== ENCOUNTER → 2016-12-23 | Outpatient (CLI) | payer MEDICAID ==
[2016-12-23 15:24] LABS: AMPHETAMINES/METAMPHETAMINES NEGATIVE ng/mL (<1000)
== END ==
LOC: LAB 13:01
PROVIDERS: Emergency Medicine
DX: Z79.899 Other long term (current) drug therapy (principal)

== ENCOUNTER 2017-02-09 10:30 | Emergency (ER) | payer MEDICAID ==
[~2017-02-09] VITALS: Ht 149.9 cm; Wt 54.0 kg
--- NOTE | 2017-02-09 11:39 | Urgent Treatment Center Report ---
History of Present Issue Date/Time Seen by Provider 02/09/17 1137 Visit Reason Pt arrived:Walked Presenting Problem:COUGH X1 WK Location if Accident: Onset of symptoms date/time:/ or onset unknown for:MEDICAL HX UNKNOWN Have you (or family members/close friends) recently traveled outside the [place]? N If Yes, where/when: Have you had exposure to infectious disease within the past month? TB? Other? Specify: Patient state that she has had cough and congestion for about a week State that she has continued to get worse State that she has been coughing so much that she now has her throat irritated State that she had to bring her daughter in to get checked so she wanted to get checked too ALLERGIES Coded Allergies: Penicillins (11/18/15) codeine (11/18/15) Home Medications Active Scripts SULFAMETHOXAZOLE W/TRIMETHOPRI (Bactrim Ds Tab) 1 TAB PO BID #20 TAB Prov: 10/07/16 HYDROCODONE/ACETAMINOPHEN ([place] 5-325 Tablet) 1 TAB PO Q6HP PRN pain #6 TAB Prov: 10/07/16 Reported Medications OFLOXACIN (Floxin 0.3% Otic Solution 5ML) 10 DROP OT BID History Medical History General CAD? No Angina: No MD: No Hypertension? No Hyperlipidemia? No CHF? No DVT? No PE? No COPD? No Asthma? Yes Anemia? No GERD? No Gastric ulcers? No GI Bleed? No Hernia? No Thyroid Problems? No Hypothyroidism? No CVA? No Seizures? No Diabetes? Yes Insulin Dependent: No Insulin Pump: No Home FSBS? Yes Renal Insuffiency? No UTI? No Stones? No BPH? No GB Disease: No Nephritic Syndrome? No Asplenia? No Hepatitis? No Sickle Cell Disease? No Arthritis? No Migraines? No Cataracts? No Glaucoma? No MRSA? No HIV? No TB? No Anxiety? No Depression? No Cancer? No More? Yes Additional hx: MARIJUANA USE Immunization HX Ped.Immunizations UTD Yes DT/Tetanus [id number] Flu REFUSES Pneumonia Refuses Surgical Hx Previous Surgery?Y SAMANTHA CYST X 3 Tonsils Tubal Ligation Family History Family HX Diabetes Yes CAD No Hypertension Yes Hyperlipidemia Yes Cancer No TB No Social History Smoking Hx Smoker: Current Every Day Smoker Tobacco: Yes Type Cigarettes Packs/day 1 1/2 - 2 Packs Alcohol Alcohol: No Review of Systems All Other Systems Reviewed and Negative ENT throat pain. Respiratory cough, wheezing Physical Exam Vital Signs Vital Signs Date Time Temp Pulse Resp B/P Pulse O2 O2 Flow FiO2 Ox Delivery Rate 02/09 1052 97.8 90 18 114/41 98 General Appearance normal appearance, WD/WN, no apparent distress Respiratory Status Yes: trachea midline, chest symmetrical, non tender chest. No: respiratory distress. Lung Sounds bilateral: wheezing. Cardiovascular normal exam, regular rate/rhythm Neurologic alert, normal exam, oriented x 3 Medical Decision Making LABS/Meds/Orders Pt receiving controlled substance in ED? No Results/Orders Laboratory Tests 02/09/17 1107: Group A Strep Screen NOT DETECTED Current Medication Orders Sig/Maxime Start time Last Medication Dose Route Stop Time Status Admin Albuterol/Ipratropium 0 .STK-MED ONE 02/09 1123 DC INH Albuterol/Ipratropium 3 ML ONCE ONE 02/09 1115 DC INH 02/09 1116 Orders Procedure Date/time Status RT REQUEST DUONEB 02/09 1114 Active CHEST(2 VIEWS-NOT PORTABLE) 02/09 1114 Active UTC STREP SCREEN 02/09 1107 Complete XRAY/CT/US XRAY/CT/US XRAY chest XR interpretation by discussed w/radiologist Xray Results no infiltrates Departure Departure Time of Disposition 1142 Disposition DC Home or Self Care(routine) Clinical Impression Primary Impression: Upper respiratory infection Qualifiers: URI type: unspecified URI Qualified Code: J06.9 - Acute upper respiratory infection, unspecified Secondary Impressions: Bronchitis Condition STABLE Referrals Larissa CORDOVA,Arpit Tate (Family): 3 Days-Call Office if no improvement Patient Instructions Cough, Guaifenesin Additional Instructions * Monitor Temp. Tylenol and/or Ibuprofen as needed. ER if fever is no less than 101 despite alternating Tylenol and Ibuprofen * Encourage fluids, water, Gatorade, powerade, pedialyte if /toddler/or child * Warm salt water gargles for throat irritation *Warm fluids *Sore throat lozenges *Sleep elevated *humidifier or vaporizer Lots of rest Increase fluids, water, Gatorade, powerade *Flonase 2 sprays each nostril daily but may take 2-3 days to notice improvement with it *Your throat swab was sent to lab for culture. Those results area typically sent to your primary care physician. Be sure to follow up in 2-3 days if no improvement so they can review those results and treat if necessary If you dont have primary care I recommend you get one, but in the mean time you will have to return to a walk in clinic Follow up IMMEDIATELY for new or worsening of symptoms OR no noticeable improvement over the next 48-72 hours. 911 immediately for any life threatening symptoms such as chest pain or difficulty breathing Discharge Counseling Counseled pt/family regarding diagnosis, test results, medications/RX, home care, follow up needs Prescriptions Current Visit Scripts Azithromycin (Zithromycin (Z-CARI) 250MG Tab) 250 MG PO DAILY #6 TAB TAKE TWO (2) TABLETS ON DAY 1, THEN ONE (1) TABLET DAY #2 THRU #5 Albuterol Sulfate (Proair Hfa) 2 PUFFS IH QID #1 INH Prednisone (Prednisone 20MG) 20 MG PO BID #10 TAB Guaifenesin (Mucinex) 1,200 MG PO BID #20 TER Benzonatate (Tessalon Perle) 100 MG PO TID #15 SGL at 7449
[2017-02-09] MEDS ORDERED: PREDNISONE 20MG20 MG PO (11:45)
[2017-02-09] MEDS ORDERED: MUCINEX1200 MG PO (11:45)
[2017-02-09] MEDS ORDERED: ZITHROMAX Z PA250 MG PO (11:45)
[2017-02-09] MEDS ORDERED: TESSALON PERLE100 M1 PO (11:45)
[2017-02-09] MEDS ORDERED: PROAIR HFA0.09 MG/AC IH (11:45)
[2017-02-09 11:58] VITALS: BP 114/41
--- OUTSIDE RECORDS SUMMARY | 2017-02-09 12:44 | External Medical Summary Rpt ---
Author Author [employer]IA Pinto, [employer] Address Unknown Phone Unavailable Results Drugs identified in Urine by Screen method Observa Value Referen Units Interpr Notes Date tion ce etation Range Positive urine drug screen samples are stored for 7 days. Contact the Lab if confirmation of positives is needed. Ampheta NEGATIV <1000 ng/mL No No Dec 23 mine E informa informa 2016 [Presen tion in tion in 9:00 AM ce] in source source Urine data data by Screen method Barbitura <200 ng/mL No No Dec 23 nini informati informati 2016 9:00 [Mass/vol on in on in AM ume] in source source Urine by data data Screen method Benzodiaz 200 ng/mL ng/mL No No Dec 23 epines informati informati 2016 9:00 [Mass/vol on in on in AM ume] in source source Serum or data data Plasma by Screen method Cocaine <300 ng/g No No Dec 23 [Mass/vol informati informati 2016 9:00 ume] in on in on in AM Unspecifi source source ed data data specimen Methadone <300 ng/mL No No Dec 23 informati informati 2016 9:00 [Mass/vol on in on in AM ume] in source source Unspecifi data data ed specimen Opiates <300 ng/mL No No Dec 23 [Mass/vol informati informati 2016 9:00 ume] in on in on in AM Unspecifi source source ed data data specimen Phencycli <25 ng/mL No No Dec 23 dine informati informati 2016 9:00 [Mass/vol on in on in AM ume] in source source Unspecifi data data ed specimen 11-Hydr POSITIV <50 ng/mL Abnorma This is Dec 23 oxy E l an 2017 delta-9 UNCONFI 9:00 AM RMED tetrahy result. [email or web address] This abinol result [Presen is for ce] in medical Unspeci purpose fied s specime and/or n treatme nt only. Drugs identified in Urine by Screen method Observa Value Referen Units Interpr Notes Date tion ce etation Range Positive urine drug screen samples are stored for 7 days. Contact the Lab if confirmation of positives is needed. Ampheta NEGATIV <1000 ng/mL No No Dec 19 mine E informa informa 2016 [Presen tion in tion in 10:25 ce] in source source AM Urine data data by Screen method Barbitura <200 ng/mL No No Dec 19 nini informati informati 2016 [Mass/vol on in on in 10:25 AM ume] in source source Urine by data data Screen method Benzodiaz 200 ng/mL ng/mL No No Dec 19 epines informati informati 2016 [Mass/vol on in on in 10:25 AM ume] in source source Serum or data data Plasma by Screen method Cocaine <300 ng/g High This is Dec 19 [Mass/vol an 2016 ume] in UNCONFIRM 10:25 AM Unspecifi ED ed result. specimen This result is for medicalpu rposes and/or treatment only. Methadone <300 ng/mL No No Dec 19 informati informati 2016 [Mass/vol on in on in 10:25 AM ume] in source source Unspecifi data data ed specimen Opiates <300 ng/mL No No Dec 19 [Mass/vol informati informati 2016 ume] in on in on in 10:25 AM Unspecifi source source ed data data specimen Phencycli <25 ng/mL No No Dec 19 dine informati informati 2016 [Mass/vol on in on in 10:25 AM ume] in source source Unspecifi data data ed specimen 11-Hydr POSITIV <50 ng/mL Abnorma This is Dec 19 oxy E l an 2017 delta-9 UNCONFI 10:25 RMED AM tetrahy result. [email or web address] This abinol result [Presen is for ce] in medical Unspeci purpose fied s specime and/or n treatme nt only. COMMENT INFO Observa Value Referen Units Interpr [...] tion that must be protect ed in [facility] nce with the [employer] [facility] [place] [...] source AM data data data data KIT 04-05-11 No No No No Oct 20 EXPIRAT [...] MINATEU NSATISF ACTORY RESULT= INVALID EFFECTI VE NOVEMBE R [id number]: THE APTIMA COMBO 2 NUCLEIC ACIDAMP LIFICAT [...]
--- OUTSIDE RECORDS SUMMARY | 2017-02-09 12:44 | External Medical Summary Rpt | CCD ---
Author Author , ZIA LIZARRAGA Address Unknown Phone [email or web address] Immunization Name Date Rout CVX Reac Dose [...]
--- OUTSIDE RECORDS SUMMARY | 2017-02-09 12:44 | External Medical Summary Rpt ---
[...] tion that must be protect ed in [facility] nce with the [employer] ce [...]
--- OUTSIDE RECORDS SUMMARY | 2017-02-09 12:44 | External Medical Summary Rpt | CCD ---
Author Author , ZIA LIZARRAGA Address Unknown Phone [email or web address] Immunization Name Date Rout CVX Reac Dose [...]
--- NOTE | 2017-02-09 16:08 | RADIOLOGY REPORT PS360 ---
CHEST(2 VIEWS-NOT PORTABLE) HISTORY: cough and congestion ORDERING PHYSICIAN: RETA CASTLE APRN PATIENT AGE: 31 years COMPARISON: 04/30/2016 FINDINGS: The cardiomediastinal silhouette and pulmonary vascularity are within normal limits. There is mild bronchial thickening in the left hilar region consistent with bronchitis. No lobar consolidation or collapse. There is mild pectus deformity with some silhouetting out of the right heart border. No change in the 5 mm nodule in the right upper lobe. No acute bony abnormalities. IMPRESSION: Bronchitis
== END 2017-02-09 11:59 | disposition home or self-care (01) ==
LOC: UTC 10:30
DX: J06.9 Acute upper respiratory infection, unspecified (principal); J40 Bronchitis, not specified as acute or chronic; Z72.0 Tobacco use